=== PATIENT | female | born 1960 | race Caucasian/White ===

== ENCOUNTER 2021-02-04 07:44 | Day surgery (SDC) | payer OTHER, SELFPAY ==
[~2021-02-04] VITALS: Ht 157.5 cm; Wt 62.6 kg
[~2021-02-04 07:44] MED LIST: CLINDAMYCIN PHOS 600 MG/ D5W 50 ML PREMIX IV ONE
[2021-02-04] MEDS ORDERED: HYDROmorphone 1 MG/ML INJ. CARTRIDGE IVP PRN (10:30)
[2021-02-04] MEDS ORDERED: LR 1,000 ML IV SCH (10:30)
[2021-02-04] MEDS ORDERED: ONDANSETRON HCL 4 MG/2 ML VIAL IVP PRN ×2 (10:30→11:45)
[2021-02-04] MEDS ORDERED: KETOROLAC TROMETHAMINE 30 MG VIAL IVP PRN (10:30)
[2021-02-04] MEDS ORDERED: HYDROmorphone 2 MG/ML VIAL IVP PRN (10:30)
[2021-02-04] MEDS ORDERED: METOCLOPRAMIDE HCL 10 MG/2 ML VIAL ONE (11:37)
[2021-02-04] MEDS ORDERED: MIDAZOLAM HCL 5 MG/ML VIAL (VERSED) IV ONE (11:37)
[2021-02-04] MEDS ORDERED: SEVOFLURANE 15 MIN GAS INH ONE (11:37)
[2021-02-04] MEDS ORDERED: LIDOCAINE/EPI 1% 1:100000 20 ML VIAL INJ ONE (11:37)
[2021-02-04] MEDS ORDERED: GLYCOPYRROLATE 0.2 MG/ML VIAL ONE (11:37)
[2021-02-04] MEDS ORDERED: KETOROLAC TROMETHAMINE 30 MG VIAL ONE (11:37)
[2021-02-04] MEDS ORDERED: PROPOFOL 200MG/ 20ML VIAL (DIPRIVAN) IV ONE (11:37)
[2021-02-04] MEDS ORDERED: fentaNYL CITRATE/PF 100 MCG/2 ML AMP ONE (11:37)
[2021-02-04] MEDS ORDERED: LR 1,000 ML IV.SOLN IV ONE (11:37)
[2021-02-04] MEDS ORDERED: ONDANSETRON HCL 4 MG/2 ML VIAL ONE (11:37)
[2021-02-04] MEDS ORDERED: WATER FOR IRRIGATION,STERILE 1,000 ML IRRIG.SOLN IR ONE (11:37)
[2021-02-04] MEDS ORDERED: NS 1000 ML IV.SOLN IV ONE (11:37)
[2021-02-04] MEDS ORDERED: ROCURONIUM BROMIDE 10 MG/ML (ZEMURON) ONE (11:37)
[2021-02-04] MEDS ORDERED: OXYMETAZOLINE HCL 0.05% NASAL SPRAY NS ONE (11:37)
[2021-02-04] MEDS ORDERED: OXYMETAZOLINE HCL 0.05% NASAL SPRAY NS PRN (11:45)
[2021-02-04] MEDS ORDERED: ONDANSETRON 4 MG ODT TAB PO PRN (11:45)
[2021-02-04] MEDS ORDERED: HYDROcodone/ACETAMIN 5-325 MG TAB (NORCO/ VICODIN) PO PRN (11:45)
[2021-02-04] MEDS ORDERED: ACETAMINOPHEN 500 MG TABLET PO PRN (11:45)
[2021-02-04 16:34] VITALS: BP_SYST 112
[2021-02-05] MEDS ORDERED: METO50TA7 PO (19:22)
[2021-02-05] MEDS ORDERED: CEFU250T85 PO (19:22)
[2021-02-05] MEDS ORDERED: SODI126M NS (19:22)
[2021-02-05] MEDS ORDERED: VITD400 PO (19:22)
[2021-02-07] MEDS ORDERED: ONDA4TAB5 PO (13:25)
[2021-02-07] MEDS ORDERED: IBUP-1969 PO (13:25)
== END 2021-02-04 16:25 | disposition home or self-care (01) ==
LOC: SDS 07:44 → SMU 07:46 → SDS 16:25
PROVIDERS: ATTEND Otolaryngology
DX: J34.2 Deviated nasal septum (principal); J34.3 Hypertrophy of nasal turbinates; Z79.899 Other long term (current) drug therapy; Z20.822 Contact with and (suspected) exposure to COVID-19
CPT/HCPCS: 30140; 30520; J1885; J2250; J2405; J2704; J2765; J3010; J3490 ×2; J7030; J7120; U0003